=== PATIENT | male | born 1970 | race Hispanic/Latino ===

== ENCOUNTER 2020-01-04 23:16 | Emergency (ER) | payer SELFPAY ==
[~2020-01-04] VITALS: Ht 167.6 cm; Wt 95.4 kg
[2020-01-04] MEDS ORDERED: AMOX/K CLAV875 M1 PO (23:38)
[2020-01-04] MEDS ORDERED: TYLENOL 8 HOUR650 MG PO (23:39)
[2020-01-05 00:33] LABS: URINE BILIRUBIN - DIPSTICK NEGATIVE (NEGATIVE); URINE BLOOD DIPSTICK NEGATIVE (NEGATIVE); URINE COLOR YELLOW; URINE GLUCOSE - DIPSTICK NEGATIVE (NEGATIVE); URINE KETONE NEGATIVE (NEGATIVE); URINE LEUK ESTERASE NEGATIVE (NEGATIVE); URINE NITRITE - DIPSTICK NEGATIVE (Negative); URINE PROTEIN - DIPSTICK NEGATIVE (NEG-TRACE)
[2020-01-05 00:44] LABS: ALBUMIN 3.4 g/dL (3.2-5.0); ALKALINE PHOSPHATASE 197 u/l (38-126); AMYLASE 39 u/l (30-110); ANION GAP 12 (6-22 (CALC)); BILIRUBIN, TOTAL 1.3 mg/dL (0.0-1.4); BUN 9 mg/dL (9-20); BUN/CREATININE RATIO 14 (12-20 (CALC)); CARBON DIOXIDE 22 mmol/l (22-30); CHLORIDE 103 mmol/l (95-108); CREATININE 0.6 mg/dL (0.7-1.3); GFR > 60 ML/MIN (>=60 (CALC)); GFR FOR AFR.AMER. > 60 ML/MIN (>=60 (CALC)); LIPASE 45 u/l (23-300); POTASSIUM 3.7 mmol/l (3.5-5.1); SGOT/AST 30 u/l (17-59); SODIUM 134 mmol/l (137-146); TOTAL PROTEIN 6.6 g/dL (6.3-8.2)
[2020-01-05 00:54] LABS: HEMATOCRIT 45.6 % (39.0-50.0); HEMOGLOBIN 15.1 g/dl (14.0-18.0); RED BLOOD COUNT 4.94 mill/uL (4.70-6.10)
[2020-01-05 00:55] LABS: IMMATURE GRANULOCYTES 0.9 % (0.0-5.0); MEAN CELL VOLUME 92.3 fL CALC (80.0-100.0); MEAN CORPUSCULAR HGB 30.6 pG CALC (26.0-32.0); MEAN CORPUSCULAR HGB CONC 33.1 g/dL CAL (32.0-36.0); RED CELL DISTRI WIDTH 12.9 % (11.5-15.5)
[2020-01-05 00:56] LABS: NEUT# 11.61 thou/uL (1.82-7.42)
[2020-01-05] MEDS ORDERED: LORTAB 1010 MG PO (02:59)
[2020-01-05 03:22] VITALS: BP 135/75
== END 2020-01-05 03:45 | disposition home or self-care (01) | DRG 392 ==
LOC: ED 23:16
PROVIDERS: Emergency Medicine
DX: R10.11 Right upper quadrant pain (principal); R11.0 Nausea; R50.9 Fever, unspecified; Z90.49 Acquired absence of other specified parts of digestive tract
CPT/HCPCS: Q9967

== ENCOUNTER 2020-01-21 23:06 | Emergency (ER) | payer SELFPAY ==
[~2020-01-21] VITALS: Ht 167.6 cm; Wt 81.8 kg
[~2020-01-21 23:06] MED LIST: AMOX/K CLAV875 M1 PO; LORTAB 1010 MG PO; TYLENOL 8 HOUR650 MG PO
[2020-01-21] MEDS ORDERED: DOXYCYCL HYC100 MG PO (23:26)
[2020-01-21 23:37] LABS: URINE BILIRUBIN - DIPSTICK NEGATIVE (NEGATIVE); URINE BLOOD DIPSTICK NEGATIVE (NEGATIVE); URINE COLOR YELLOW; URINE GLUCOSE - DIPSTICK NEGATIVE (NEGATIVE); URINE KETONE NEGATIVE (NEGATIVE); URINE LEUK ESTERASE NEGATIVE (NEGATIVE); URINE NITRITE - DIPSTICK NEGATIVE (Negative); URINE PROTEIN - DIPSTICK NEGATIVE (NEG-TRACE); URINE SPECIFIC GRAVITY <=1.005; URINE UROBILINOGEN - DIPSTICK 0.2 E.U./dL (0.2)
[2020-01-21 23:39] LABS: HEMATOCRIT 42.3 % (39.0-50.0); HEMOGLOBIN 13.8 g/dl (14.0-18.0); IMMATURE GRANULOCYTES 0.9 % (0.0-5.0); MEAN CELL VOLUME 92.8 fL CALC (80.0-100.0); MEAN CORPUSCULAR HGB 30.3 pG CALC (26.0-32.0); MEAN CORPUSCULAR HGB CONC 32.6 g/dL CAL (32.0-36.0); NEUT# 4.69 thou/uL (1.82-7.42); RED BLOOD COUNT 4.56 mill/uL (4.70-6.10); RED CELL DISTRI WIDTH 12.8 % (11.5-15.5)
[2020-01-22 00:02] LABS: ALKALINE PHOSPHATASE 255 u/l (38-126); AMYLASE 76 u/l (30-110); ANION GAP 14 (6-22 (CALC)); BUN 10 mg/dL (9-20); BUN/CREATININE RATIO 18 (12-20 (CALC)); CARBON DIOXIDE 23 mmol/l (22-30); CHLORIDE 106 mmol/l (95-108); CREATININE 0.6 mg/dL (0.7-1.3); GFR > 60 ML/MIN (>=60 (CALC)); GFR FOR AFR.AMER. > 60 ML/MIN (>=60 (CALC)); LIPASE 121 u/l (23-300); POTASSIUM 4.2 mmol/l (3.5-5.1); SGOT/AST 32 u/l (17-59); SODIUM 138 mmol/l (137-146); TOTAL PROTEIN 7.8 g/dL (6.3-8.2)
[2020-01-22 00:15] VITALS: BP 134/84
[2020-01-22 00:17] LABS: ALBUMIN 4.1 g/dL (3.2-5.0); BILIRUBIN, TOTAL 0.5 mg/dL (0.0-1.4)
[2020-01-22] MEDS ORDERED: TRAMADOL HCL50 MG PO (00:20)
== END 2020-01-22 00:45 | disposition home or self-care (01) | DRG 392 ==
LOC: ED 23:06
PROVIDERS: Family Medicine
DX: R10.33 Periumbilical pain (principal); Z90.49 Acquired absence of other specified parts of digestive tract; Z86.14 Personal history of Methicillin resistant Staphylococcus aureus infection
CPT/HCPCS: Q9967

== ENCOUNTER 2020-01-28 10:49 | Emergency (ER) | payer SELFPAY ==
[~2020-01-28] VITALS: Ht 167.6 cm; Wt 80.0 kg
[~2020-01-28 10:49] MED LIST changes: +DOXYCYCL HYC100 MG PO; +TRAMADOL HCL50 MG PO
[2020-01-28 11:56] LABS: HEMATOCRIT 43.1 % (39.0-50.0); HEMOGLOBIN 14.1 g/dl (14.0-18.0); MEAN CELL VOLUME 93.3 fL CALC (80.0-100.0); MEAN CORPUSCULAR HGB 30.5 pG CALC (26.0-32.0); MEAN CORPUSCULAR HGB CONC 32.7 g/dL CAL (32.0-36.0); NEUT# 3.04 thou/uL (1.82-7.42); RED BLOOD COUNT 4.62 mill/uL (4.70-6.10); RED CELL DISTRI WIDTH 13.1 % (11.5-15.5)
[2020-01-28 12:04] LABS: URINE BILIRUBIN - DIPSTICK NEGATIVE (NEGATIVE); URINE BLOOD DIPSTICK NEGATIVE (NEGATIVE); URINE COLOR YELLOW; URINE GLUCOSE - DIPSTICK NEGATIVE (NEGATIVE); URINE KETONE NEGATIVE (NEGATIVE); URINE LEUK ESTERASE NEGATIVE (NEGATIVE); URINE NITRITE - DIPSTICK NEGATIVE (Negative); URINE PH 5.5 (4.5-8.0); URINE PROTEIN - DIPSTICK NEGATIVE (NEG-TRACE); URINE SPECIFIC GRAVITY 1.025; URINE UROBILINOGEN - DIPSTICK 0.2 E.U./dL (0.2)
[2020-01-28 12:18] LABS: ALBUMIN 4.2 g/dL (3.2-5.0); ALKALINE PHOSPHATASE 212 u/l (38-126); ANION GAP 11 (6-22 (CALC)); BILIRUBIN, TOTAL 0.7 mg/dL (0.0-1.4); BUN 7 mg/dL (9-20); BUN/CREATININE RATIO 13 (12-20 (CALC)); CARBON DIOXIDE 24 mmol/l (22-30); CHLORIDE 106 mmol/l (95-108); CREATININE 0.6 mg/dL (0.7-1.3); GFR > 60 ML/MIN (>=60 (CALC)); GFR FOR AFR.AMER. > 60 ML/MIN (>=60 (CALC)); LIPASE 67 u/l (23-300); POTASSIUM 4.1 mmol/l (3.5-5.1); SGOT/AST 35 u/l (17-59); SODIUM 138 mmol/l (137-146); TOTAL PROTEIN 7.5 g/dL (6.3-8.2)
[2020-01-28] MEDS ORDERED: ACETAMIN500 M2 PO (12:47)
[2020-01-28] MEDS ORDERED: COMBIVENT RESPIMAT IN (12:47)
[2020-01-28] MEDS ORDERED: IBUPROFEN600 MG PO (12:48)
[2020-01-28] MEDS ORDERED: ACIDOPHILU6 PO (12:49)
[2020-01-28] MEDS ORDERED: DULCOLAX5 MG PO ×2 (13:30)
[2020-01-28] MEDS ORDERED: MIRALAX3350 N1 PO ×2 (13:30)
[2020-01-28] MEDS ORDERED: MAGNESIUM296 ML/BTL PO ×2 (13:30)
[2020-01-28 14:20] VITALS: BP 153/91
== END 2020-01-28 14:19 | disposition home or self-care (01) | DRG 392 ==
LOC: ED 10:49
PROVIDERS: Student in an Organized Health Care Education/Training Program
DX: K59.00 Constipation, unspecified (principal); Z90.49 Acquired absence of other specified parts of digestive tract; Z86.14 Personal history of Methicillin resistant Staphylococcus aureus infection
CPT/HCPCS: Q9967; S0073

== ENCOUNTER 2020-01-31 15:44 | Emergency (ER) | payer SELFPAY ==
[~2020-01-31] VITALS: Ht 160 cm; Wt 83.1 kg
[~2020-01-31 15:44] MED LIST changes: +ACETAMIN500 M2 PO; +ACIDOPHILU6 PO; +COMBIVENT RESPIMAT IN; +DULCOLAX5 MG PO; +IBUPROFEN600 MG PO; +MAGNESIUM296 ML/BTL PO; +MIRALAX3350 N1 PO
[2020-01-31 17:33] LABS: HEMATOCRIT 47.3 % (39.0-50.0); IMMATURE GRANULOCYTES 0.8 % (0.0-5.0); MEAN CELL VOLUME 92.9 fL CALC (80.0-100.0); MEAN CORPUSCULAR HGB 29.5 pG CALC (26.0-32.0); MEAN CORPUSCULAR HGB CONC 31.7 g/dL CAL (32.0-36.0); NEUT# 5.85 thou/uL (1.82-7.42); RED BLOOD COUNT 5.09 mill/uL (4.70-6.10); RED CELL DISTRI WIDTH 13.1 % (11.5-15.5)
[2020-01-31 18:05] LABS: ALBUMIN 4.6 g/dL (3.2-5.0); ALKALINE PHOSPHATASE 181 u/l (38-126); ANION GAP 14 (6-22 (CALC)); BILIRUBIN, TOTAL 1.4 mg/dL (0.0-1.4); BUN 18 mg/dL (9-20); BUN/CREATININE RATIO 26 (12-20 (CALC)); CARBON DIOXIDE 23 mmol/l (22-30); CHLORIDE 105 mmol/l (95-108); CREATININE 0.7 mg/dL (0.7-1.3); GFR > 60 ML/MIN (>=60 (CALC)); GFR FOR AFR.AMER. > 60 ML/MIN (>=60 (CALC)); LIPASE 71 u/l (23-300); POTASSIUM 4.3 mmol/l (3.5-5.1); SGOT/AST 35 u/l (17-59); SODIUM 138 mmol/l (137-146); TOTAL PROTEIN 8.2 g/dL (6.3-8.2)
[2020-01-31 19:08] VITALS: BP 122/75
== END 2020-01-31 19:08 | disposition home or self-care (01) | DRG 897 ==
LOC: ED 15:44
DX: F55.2 Abuse of laxatives (principal); R19.7 Diarrhea, unspecified; Z90.49 Acquired absence of other specified parts of digestive tract

== ENCOUNTER 2020-02-11 17:52 | Observation (INO) | payer SELFPAY ==
[~2020-02-11] VITALS: Ht 160 cm; Wt 86.8 kg
--- NOTE | 2020-02-11 17:52 | NUR ---
PT TO ROOM VIA WC FOR BEDSIDE TRIAGE
--- NOTE | 2020-02-11 18:37 | NUR ---
PT PRESENTS WITH RIGHT SIDED ABD PAIN STARTING YESTERDAY NIGHT. PAIN 6/10 THAT RADIATES TO LEFT LEG. HE STATES THAT HE HAS HAD PROBLEMS WITH CONSTIPATION AND DIARRHEA SINCE HIS GALLBLADDER SURG DEC 30. AFIBRILE. 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 IS CURRENTLY TAKING MED FOR IT. AOX4. GRIMICING IN PAIN. WILL CONTINUE TO MONITOR.
[2020-02-11 18:53] LABS: HEMATOCRIT 41.7 % (39.0-50.0); HEMOGLOBIN 13.5 g/dl (14.0-18.0); IMMATURE GRANULOCYTES 0.5 % (0.0-5.0); MEAN CELL VOLUME 93.3 fL CALC (80.0-100.0); MEAN CORPUSCULAR HGB 30.2 pG CALC (26.0-32.0); MEAN CORPUSCULAR HGB CONC 32.4 g/dL CAL (32.0-36.0); NEUT# 2.85 thou/uL (1.82-7.42); RED BLOOD COUNT 4.47 mill/uL (4.70-6.10); RED CELL DISTRI WIDTH 13.2 % (11.5-15.5)
[2020-02-11 19:11] LABS: ALBUMIN 4.2 g/dL (3.2-5.0); ALKALINE PHOSPHATASE 187 u/l (38-126); AMYLASE 61 u/l (30-110); ANION GAP 13 (6-22 (CALC)); BUN 12 mg/dL (9-20); BUN/CREATININE RATIO 16 (12-20 (CALC)); CARBON DIOXIDE 23 mmol/l (22-30); CHLORIDE 107 mmol/l (95-108); CREATININE 0.8 mg/dL (0.7-1.3); GFR > 60 ML/MIN (>=60 (CALC)); GFR FOR AFR.AMER. > 60 ML/MIN (>=60 (CALC)); LIPASE 89 u/l (23-300); POTASSIUM 4.1 mmol/l (3.5-5.1); SGOT/AST 33 u/l (17-59); SODIUM 138 mmol/l (137-146); TOTAL PROTEIN 7.3 g/dL (6.3-8.2)
[2020-02-11 19:23] LABS: BILIRUBIN, TOTAL 0.7 mg/dL (0.0-1.4); MYOGLOBIN 33 ng/mL (0 - 121)
--- NOTE | 2020-02-11 20:01 | NUR ---
GAVE REPORT TO KAYLA
[2020-02-11 20:50] LABS: URINE BILIRUBIN - DIPSTICK NEGATIVE (NEGATIVE); URINE BLOOD DIPSTICK NEGATIVE (NEGATIVE); URINE COLOR YELLOW; URINE GLUCOSE - DIPSTICK NEGATIVE (NEGATIVE); URINE KETONE NEGATIVE (NEGATIVE); URINE LEUK ESTERASE NEGATIVE (NEGATIVE); URINE NITRITE - DIPSTICK NEGATIVE (Negative); URINE PROTEIN - DIPSTICK NEGATIVE (NEG-TRACE); URINE SPECIFIC GRAVITY 1.025; URINE UROBILINOGEN - DIPSTICK 0.2 E.U./dL (0.2)
--- NOTE | 2020-02-11 20:50 | NUR ---
MD AT BEDSIDE TO DISCUSS ALL RESULTS WITH PATIENT AND PLAN OF CARE.
--- NOTE | 2020-02-11 21:45 | NUR ---
TELEPHONE REPORT RECEIVED FROM Ze HAN RN IN ED, ROOM 279 PREPARED TO RECEIVE PT BY Edith STEVENSON CNA.
--- NOTE | 2020-02-11 21:45 | NUR ---
REPORT CALLED TO YAKOV. WILL TRANSPORT PATIENT WHEN ADMISSION ORDERS ARE READY.
--- NOTE | 2020-02-11 21:50 | NUR ---
SPOKE WITH DR KEY. ORDERS RECEIVED FOR PAIN MEDS.
--- NOTE | 2020-02-11 22:30 | NUR ---
PATIENT READIED FOR TRANSPORT TO FLOOR VIA WHEELCHAIR.
--- NOTE | 2020-02-11 22:30 | NUR ---
PT ARRIVES TO UNIT VIA WC @ 2230, ACCOMPANIED BY Felicity OWUSU LPN. ADMITTED TO ROOM 279. PT AMBULATORY TO BED, GAIT IS STEADY AND BALANCED. PT ORIENTED TO UNIT, ROOM, BED CONTROLS AND TV/LIGHT/CALL DYER CONTROLS. PT VERBALIZES UNDERSTANDING.
[2020-02-11 22:32] VITALS: BP 133/90
--- NOTE | 2020-02-11 23:30 | NUR ---
ADMISSION AND PHYSICAL ASSESMENT COMPLETE. PT CURRENTLY DENIES PAIN OR DISCOMFORT. NS INFUSION AT 125ml/H INITIATED, SEE E-MAR. PT DENIES ANY NEEDS AT THIS TIME. PLAN OF CARE REVIEWED, PT DENIES QUESTIONS, VERBALIZES UNDERSTANDING. ITEMS WITHIN REACH, BED LOCKED IN LOW POSITION W/ BEDRAILS UP X2. CALL DYER WITHIN REACH, AGREES TO CALL PRN.
--- NOTE | 2020-02-12 02:16 | NUR ---
PT APPEARS TO BE SLEEPING COMOFORTABLY, NO APPARENT DISTRESS, RESPIRATIONS REGUALR AND UNLABORED. CALL DYER REMAINS WITHIN REACH.
[2020-02-12 04:00] VITALS: BP 115/72
--- NOTE | 2020-02-12 05:30 | NUR ---
SCHEDULED ANTIBIOTIC ADMINISTERED, SEE E-MAR. PT DENIES NEEDS AT THIS TIME. CALL DYER WITHIN REACH, AGREES TO CALL PRN.
[2020-02-12 07:56] VITALS: BP 139/87
--- NOTE | 2020-02-12 07:56 | NUR ---
RECIEVED REPORT FROM CELESTE NAGY. PT RESTING IN SEMI FOWLERS POSITION UPON ENTERING ROOM. INTRODUCED SELF TO PT AND DISCUSSED POC. PT IS A/O X3. ASSESSMENT AND VITALS COMPLETED AT THIS TIME. BP 139/87, HR 68, O2 99% ON ROOM AIR. RESPIRATIONS ARE EVEN AND UNLABORED WITH NO SIGNS OF DISTRESS. LUNG SOUNDS ARE CLEAR. HEART RHYTHM IS NORMAL. BOWEL SOUNDS ARE ACTIVE IN ALL QUADRANTS, LAST REPORTED BM 02/11/2020. RADIAL AND PEDAL PULSES ARE STRONG WITH NORMAL CAPILLARY REFILL. #20G IN LAC RUNNING WITH NS PER ORDER, SITE APPEARS HEALTHY AND PATENT. PT INFORMS WRITTER THAT HE HAD PREVIOUS LAPROSCOPIC CHOLECYSECTOMY ABOUT A MONTH AGO. PT COMPLAINS OF 5/10 PAIN IN ABD, MORPHINE TO BE ADMINISTERED. MD TO BE NOTIFIED OF ONLY MORPHINE AVAILABLE.PT EDUACTED ON USE OF URINAL AT BEDSIDE, PT VERBALIZED UNDERSTANDING. PT DENIES OF ANY OTHER ADDITIONAL NEEDS AT THIS TIME. ALL SAFETY PRECAUTIONS ARE IN PLACE WITH CALL LIGHT IN REACH. WILL CONTINUE TO MONITOR.
--- NOTE | 2020-02-12 08:41 | NUR ---
REASESSMENT OF PAIN AT THIS TIME. PT STATES HE NO LONGER HAS ANY PAIN. RESPIRATIONS ARE EVEN AND UNLABORED WITH NO DISTRESS NOTED. IVF RUNNING WITH EASE, SITE APPEARS HEALTHY AND PATENT. ALL SAFETY PRCAUTIONS ARE IN PLACE WITH CALL LIGHT IN REACH. WILL CONTINUE TO MONITOR.
--- NOTE | 2020-02-12 09:51 | NUR ---
DR URENA AND MER ANWOOD AT BEDSIDE DISSCUSSING POC WITH PT. Lamont ZHENG AT BEDSIDE TO ASSIST WITH TRANSLATION.
--- NOTE | 2020-02-12 12:15 | NUR ---
PT RESTING IN SEMI FOWLERS POSTIION ON PHONE UPON ENTERING ROOM.PT IS A/O X3. RESPIRATIONS ARE EVEN AND UNLABORED WITH NO SIGNS OF DISTRESS NOTED. IVF RUNNING PER ORDER. SITE APPEARS HEALTHY AND PATENT. PT REAMINS NPO FOR CT OF ABD AND PELVIS. ASSISTANCE FROM GLENN IN TRANSLATION. PT DENIES ANY PAIN OR DISCOMFORTS AT THIS TIME. ALL SAFETY PRECAUTIONS ARE IN PLACE WITH CALL LIGHT IN REACH. WILL CONTINUE TO MONITOR.
[2020-02-12 16:00] VITALS: BP 123/77
--- NOTE | 2020-02-12 16:40 | NUR ---
PT RESTING ON SOFA ON PHONE. RESPIRATIONS ARE EVEN AND UNLABORED WITH NO SIGNS OF DISTRESS NOTED. PT A/O X3. IVF RUNNING PER ORDER, SITE APPEARS HEALTHY AND PATENT. PT DENIES ANY PAIN OR DISCOMFORTS AT THIS TIME. ALL SAFETY PRECAUTIONS ARE IN PLACE WITH CALL LIGHT IN REACH. WILL CONTINUE TO MONITOR.
--- NOTE | 2020-02-12 16:49 | NUR ---
XymogenITTER ASKED PT IF HE HAS BEEN URINATING. PT STATES THAT HE HAS BUT NOT IN THE URINAL. XymogenITTER EDUCATED PT AND USAGE OF URINAL. PT VERBALIZED UNDERSTANDING.
[2020-02-12 18:45] VITALS: BP 125/86
--- NOTE | 2020-02-12 18:50 | NUR ---
FIRST DOSE OF GASTROGRAFIN ADMINISTERED. RADIOLOGY NOTIFIED.
--- NOTE | 2020-02-12 19:38 | NUR ---
ASSESSMENT COMPLETED. IV SITE PATENT AND ORDERED IVF INFUSING WELL. REPORTS MILD PAIN TO MID UPPER ABDOMEN AND DENIES NEEDS FOR PAIN MEDS. UPDATED ON POC; VERBALIZES UNDERSTANDING. ENCOURAGED TO CALL FOR ANY NEEDS. PT. IS NPO FOR CT.
--- NOTE | 2020-02-12 23:29 | NUR ---
PT. RESTING IN BED WITH EYES CLOSED; AWAKENED FOR SCHED ABT. DENIES NEEDS/PAIN. CALL LIGHT IS IN REACH.
--- NOTE | 2020-02-12 23:55 | NUR ---
NOTIFIED DR. KEY OF CT RESULTS AND NEW DIET ORDER OBTAINED FOT FULL LIQUIDS; WILL CARRY THIS OUT.
--- NOTE | 2020-02-13 02:15 | NUR ---
RESTING IN BED WITH EYES CLOSED; NO DISTRESS NOTED. RESP. EVEN AND UNLABORED.
[2020-02-13 03:30] VITALS: BP 107/65
--- NOTE | 2020-02-13 05:30 | NUR ---
PT. C/O ABDOMINAL PIAN 08/03; MEDICATED WITH ORDERED PRN ULTRAM; WILL REASSESS. DENIES FURTHER NEEDS.
[2020-02-13 07:57] VITALS: BP 136/84
--- NOTE | 2020-02-13 07:57 | NUR ---
RECIEVED REPORT FROM CELESTE CLARK. PT SITTING IN HIGH FOWLERS POSITION EATING BREAKFAST UPON ENTERING ROOM. INTRODUCED SELF TO PT AND DISCUSSED POC. PT IS MOSTLY [place] SPEAKING BUT UNDERSTANDS SOME [place]. PT IS A/O X3. ASSESSMENT AND VITALS COMPLETED AT THIS TIME4. BP 136/84, HR 66, O2 99% ON ROOM AIR. RESPRIATIONS ARE EVEN AND UNLABORED WITH NO SIGNS OF DISTRESS NOTED. LUNG SOUNDS ARE CLEAR. HEART RHYTHM IS NORMAL. BOWEL SOUNDS ARE ACTIVE IN ALL QUADRANTS, LAST REPORTED BM 02/12/2020.NO TENDERNESS UPON PALPATING. RADIAL AND PEDAL PULSES ARE STRONG WITH NORMAL CAPILLARY REFILL. #20 IN LAC RUNNING WITH IVF PER ORDER, SITE APPEARS HEALTHY AND PATENT. PT DENIES ANY PAIN OR DISCOMFORTS AT THIS TIME. PT ONLY REQUEST IS FOR MORE COFFEE. COFFEE TO BE GIVEN. ALL SAFETY PRECAUTIONS ARE IN PLACE WITH CALL LIGHT IN REACH. WILL CONTINUE TO MONITOR.
--- NOTE | 2020-02-13 11:06 | NUR ---
DR KEY AND TAYLER, ANRP AT BEDSIDE DISCUSSING POC
--- NOTE | 2020-02-13 12:30 | NUR ---
PT RESTING IN SEMI FOWLERS POSITION ON PHONE WITH AT BEDSIDE. RESPIRATIONS ARE EVEN AND UNLABORED WITH NO SIGNS OF DISTRESS NOTED. PT DENIES ANY PAIN OR DISCOMFORTS AT THIS TIME.IVF RUNNING PER ORDER, SITE APPEARS HEALTHY AND PATENT. ALL SAFETY PRECAUTIONS ARE IN PLACE WITH CALL LIGHT IN REACH. WILL CONTINUE TO MONITOR
--- NOTE | 2020-02-13 13:55 | NUR ---
Discharge instructions given. Patient verbalizes understanding of same. Discharged in stable condition via Ambulatory to Home with family. All belongings sent with pt. PT AND EDUCATED ON DISCHARGE INSTRUCTIONS. PT VERBAILZED UNDERSTANDING. IV REMOVED WITH CATHATER STILL INTACT. PT REFUSED WHEELCHAIR, INSISTED ON WALKING. PT AMBULATED WITH STEADY GAIT ACCOMPAINED BY WITH ALL DISCHARGE INSTRUCTIONS AND BELONGINGS.
== END 2020-02-13 13:55 | disposition home or self-care (01) | DRG 392 ==
LOC: ED 17:52 → ED-I 20:05 → ED 21:31 → MS2 21:31
PROVIDERS: Emergency Medicine; ADMIT Internal Medicine; ATTEND Internal Medicine
DX: R10.30 Lower abdominal pain, unspecified (principal); R93.5 Abnormal findings on diagnostic imaging of other abdominal regions, including retroperitoneum; Z90.49 Acquired absence of other specified parts of digestive tract; Z86.14 Personal history of Methicillin resistant Staphylococcus aureus infection; Z20.828 Contact with and (suspected) exposure to other viral communicable diseases
CPT/HCPCS: G0378; Q9967; S0164

== ENCOUNTER 2020-02-22 05:22 | Emergency (ER) | payer SELFPAY ==
[~2020-02-22] VITALS: Ht 160 cm; Wt 109.1 kg
[2020-02-22 06:28] LABS: HEMATOCRIT 43.1 % (39.0-50.0); HEMOGLOBIN 14.4 g/dl (14.0-18.0); IMMATURE GRANULOCYTES 0.2 % (0.0-5.0); MEAN CELL VOLUME 92.3 fL CALC (80.0-100.0); MEAN CORPUSCULAR HGB 30.8 pG CALC (26.0-32.0); MEAN CORPUSCULAR HGB CONC 33.4 g/dL CAL (32.0-36.0); NEUT# 2.7 thou/uL (1.82-7.42); RED BLOOD COUNT 4.67 mill/uL (4.70-6.10); RED CELL DISTRI WIDTH 12.9 % (11.5-15.5)
[2020-02-22 06:28] LABS: URINE BILIRUBIN - DIPSTICK NEGATIVE (NEGATIVE); URINE BLOOD DIPSTICK NEGATIVE (NEGATIVE); URINE COLOR YELLOW; URINE GLUCOSE - DIPSTICK NEGATIVE (NEGATIVE); URINE KETONE NEGATIVE (NEGATIVE); URINE LEUK ESTERASE NEGATIVE (NEGATIVE); URINE NITRITE - DIPSTICK NEGATIVE (Negative); URINE PROTEIN - DIPSTICK NEGATIVE (NEG-TRACE); URINE UROBILINOGEN - DIPSTICK 0.2 E.U./dL (0.2)
[2020-02-22 06:40] LABS: ALBUMIN 4.3 g/dL (3.2-5.0); ALKALINE PHOSPHATASE 159 u/l (38-126); AMYLASE 48 u/l (30-110); ANION GAP 12 (6-22 (CALC)); BUN 7 mg/dL (9-20); BUN/CREATININE RATIO 13 (12-20 (CALC)); CARBON DIOXIDE 24 mmol/l (22-30); CHLORIDE 107 mmol/l (95-108); CREATININE 0.6 mg/dL (0.7-1.3); GFR > 60 ML/MIN (>=60 (CALC)); GFR FOR AFR.AMER. > 60 ML/MIN (>=60 (CALC)); LIPASE 80 u/l (23-300); POTASSIUM 3.9 mmol/l (3.5-5.1); SGOT/AST 34 u/l (17-59); SODIUM 139 mmol/l (137-146); TOTAL PROTEIN 7.3 g/dL (6.3-8.2)
[2020-02-22 06:47] LABS: BILIRUBIN, TOTAL 1.8 mg/dL (0.0-1.4)
[2020-02-22] MEDS ORDERED: LEVSIN/SL0.125 MG SL (06:51)
[2020-02-22] MEDS ORDERED: ZOFRAN4 MG/TAB PO (06:51)
[2020-02-22 07:10] VITALS: BP 137/93
== END 2020-02-22 07:10 | disposition home or self-care (01) | DRG 392 ==
LOC: ED 05:22
PROVIDERS: Family Medicine
DX: R10.31 Right lower quadrant pain (principal); R11.2 Nausea with vomiting, unspecified; I10 Essential (primary) hypertension; Z90.49 Acquired absence of other specified parts of digestive tract

== ENCOUNTER 2022-08-22 11:05 | Emergency (ER) | payer SELFPAY ==
[~2022-08-22] VITALS: Ht 160 cm; Wt 80.9 kg
[~2022-08-22 11:05] MED LIST changes: +LEVSIN/SL0.125 MG SL; +ZOFRAN4 MG/TAB PO
[2022-08-22 11:12] VITALS: BP 140/97
[2022-08-22 11:30] VITALS: BP 128/100
[2022-08-22] MEDS ORDERED: KEFLEX500 MG PO (12:21)
[2022-08-22 12:31] VITALS: BP 128/100
== END 2022-08-22 12:39 | disposition home or self-care (01) | DRG 605 ==
LOC: ED 11:05
PROC: 0HQDXZZ Repair Right Lower Arm Skin, External Approach (ICD-10-PCS; principal; 2022-08-22)
DX: S61.511A Laceration without foreign body of right wrist, initial encounter (principal); W25.XXXA Contact with sharp glass, initial encounter; I10 Essential (primary) hypertension

== ENCOUNTER 2022-09-01 13:28 | Emergency (ER) | payer SELFPAY ==
[~2022-09-01] VITALS: Ht 160 cm; Wt 82.5 kg
[~2022-09-01 13:28] MED LIST changes: +KEFLEX500 MG PO
[2022-09-01 13:41] VITALS: BP 139/100
[2022-09-01 14:30] VITALS: BP 139/100
== END 2022-09-01 14:36 | disposition home or self-care (01) | DRG 951 ==
LOC: ED 13:28
DX: Z48.02 Encounter for removal of sutures (principal); I10 Essential (primary) hypertension